=== PATIENT | female | born 1955 | race Caucasian/White ===

== ENCOUNTER → 2017-08-26 | Outpatient (CLI) | payer OTHER ==
[~2017-08-26] MED LIST: CHOLESTEROL MED; GLUCOPHAGE; GLYB5; GUAPHELA PO; METF500; NIFE10 PO; SULTRIDS PO
[2017-08-26 14:22] LABS: BASOPHILS ABSOLUTE AUTO 0.05 K/mm3 (0.00-0.23); BASOPHILS PERCENT AUTO 1 % (0-2); EOSINOPHILS ABSOLUTE AUTO 0.16 K/mm3 (0.00-0.68); EOSINOPHILS PERCENT AUTO 3 % (0-6); Hematocrit 37.6 % (33.0-51.0); IMMATURE GRAN ABSOLUTE AUTO 0.04 K/mm3 (0.00-0.10); IMMATURE GRAN PERCENT AUTO 1 % (0-1); LYMPHOCYTES PERCENT AUTO 31 % (21-46); MONOCYTES ABSOLUTE AUTO 0.41 K/mm3 (0.16-1.47); MONOCYTES PERCENT AUTO 7 % (4-13); Mean Corpuscular HGB 26.7 pg (26.0-34.0); Mean Corpuscular HGB Conc 31.9 g/dL (31.5-36.5); Mean Corpuscular Volume 84 fL (80-100); Mean Platelet Volume 11.1 fL (9.1-12.4); NEUTROPHILS ABSOLUTE AUTO 3.62 K/mm3 (1.96-9.15); NEUTROPHILS PERCENT AUTO 59 % (41-73); Platelet Count 270 K/mm3 (150-400); RDW Coefficient Variation 13.2 % (11.7-14.2); Red Blood Cell Count 4.49 M/mm3 (3.80-5.20); White Blood Cell Count 6.18 K/mm3 (4.00-11.30)
[2017-08-26 15:51] LABS: Alanine Aminotransfer (ALT/SGP 24 U/L (12-78); Albumin, Blood 3.7 g/dL (3.4-5.0); Albumin/Globulin Ratio 1.1 (0.8-1.8); Alk Phos 64 U/L (50-136); Anion Gap 9 mmol/L (6-16); Aspartate Aminotrans (AST/SGOT 23 U/L (12-37); Bilirubin, Total 0.4 mg/dL (0.1-1.0); Blood Urea Nitrogen 11 mg/dL (8-24); Bun/Creatinine Ratio 12.4 (12.0-20.0); CHOL/HDL RATIO 3.3; CO2, Blood 25 mmol/L (21-32); Calcium, Blood 8.7 mg/dL (8.5-10.1); Chloride, Blood 108 mmol/L (98-108); Cholesterol 140 mg/dL (50-200); Creatinine, Blood 0.89 mg/dL (0.40-1.00); Globulin, Blood 3.4 g/dL (2.2-4.0); Glomerular Filtration Rate >60 (60-); Glucose, Blood 96 mg/dL (70-99); HDL Cholesterol 43 mg/dL (>39); LDL/HDL RATIO 1.6; Low Density Lipoprotein Chol 69 mg/dL (0-110); Potassium, Blood 4.8 mmol/L (3.5-5.5); Sodium, Blood 142 mmol/L (136-145); Total Protein, Blood 7.1 g/dL (6.4-8.2); Triglycerides 141 mg/dL (30-160); Very Low Density Lipoprot Chol 28 mg/dL (6-32)
== END | disposition home or self-care (01) ==
LOC: LAB 13:50
PROVIDERS: Nurse Practitioner Family
DX: E11.9 Type 2 diabetes mellitus without complications (principal); E55.9 Vitamin D deficiency, unspecified; E78.5 Hyperlipidemia, unspecified
CPT/HCPCS: 80053; 80061; 82306; 85025

== ENCOUNTER 2021-09-12 06:42 | Day surgery (SDC) | payer OTHER ==
[~2021-09-12] VITALS: Ht 167.6 cm; Wt 80.2 kg
[~2021-09-12 06:42] MED LIST changes: +AMLO5; +GLIP5; +HYDCHL25; +INSULANI; +LOSA50; +LOVA40; +MELATONIN5 M1
[2021-09-12] MEDS ORDERED: INSULANI (07:11)
--- NOTE | 2021-09-12 08:00 | NUR ---
09/12/21 0800 Spencer Bowman CALL LIGHT WITHIN REACH. DR. COLIN AWARE OF PT'S BLOOD SUGAR OF 65 D5W WITH LR ORDERED. ALSO AWARE PT NOT FULLY CLEANED OUT FROM PREPP
== END 2021-09-12 09:50 | disposition home or self-care (01) ==
LOC: ORSCSDS 06:42
PROVIDERS: Student in an Organized Health Care Education/Training Program
PROC: 0DBM8ZX Excision of Descending Colon, Via Natural or Artificial Opening Endoscopic, Diagnostic (ICD-10-PCS; principal; 2021-09-12 08:00)
PROC: 0DB78ZX Excision of Stomach, Pylorus, Via Natural or Artificial Opening Endoscopic, Diagnostic (ICD-10-PCS; principal; 2021-09-12 08:00)
PROC: 0DB48ZX Excision of Esophagogastric Junction, Via Natural or Artificial Opening Endoscopic, Diagnostic (ICD-10-PCS; principal; 2021-09-12 08:00)
PROC: 0DB98ZX Excision of Duodenum, Via Natural or Artificial Opening Endoscopic, Diagnostic (ICD-10-PCS; principal; 2021-09-12 08:00)
PROC: 0DBH8ZX Excision of Cecum, Via Natural or Artificial Opening Endoscopic, Diagnostic (ICD-10-PCS; principal; 2021-09-12 08:00)
PROC: 0DBL8ZX Excision of Transverse Colon, Via Natural or Artificial Opening Endoscopic, Diagnostic (ICD-10-PCS; principal; 2021-09-12 08:00)
PROC: 0DBN8ZX Excision of Sigmoid Colon, Via Natural or Artificial Opening Endoscopic, Diagnostic (ICD-10-PCS; principal; 2021-09-12 08:00)
DX: D50.9 Iron deficiency anemia, unspecified (principal); K21.9 Gastro-esophageal reflux disease without esophagitis; K29.70 Gastritis, unspecified, without bleeding; B96.81 Helicobacter pylori [H. pylori] as the cause of diseases classified elsewhere; D12.2 Benign neoplasm of ascending colon; D12.3 Benign neoplasm of transverse colon; D12.5 Benign neoplasm of sigmoid colon; I10 Essential (primary) hypertension; E78.5 Hyperlipidemia, unspecified; E11.9 Type 2 diabetes mellitus without complications; Z79.84 Long term (current) use of oral hypoglycemic drugs; Z79.899 Other long term (current) drug therapy
CPT/HCPCS: 82947; 88305; 88342; J2405; J2704; J7120; J7121

== ENCOUNTER 2022-06-03 08:20 | Day surgery (SDC) | payer OTHER ==
[~2022-06-03] VITALS: Ht 167.6 cm; Wt 80.5 kg
[2022-06-03] MEDS ORDERED: INSULANI (08:43)
[2022-06-03] MEDS ORDERED: ASCO500 PO (08:45)
== END 2022-06-03 10:33 | disposition home or self-care (01) ==
LOC: ORSCSDS 08:20
PROVIDERS: Student in an Organized Health Care Education/Training Program
PROC: 08RJ3JZ Replacement of Right Lens with Synthetic Substitute, Percutaneous Approach (ICD-10-PCS; principal; 2022-06-03 09:45)
DX: H25.11 Age-related nuclear cataract, right eye (principal); E11.42 Type 2 diabetes mellitus with diabetic polyneuropathy; K21.9 Gastro-esophageal reflux disease without esophagitis; E78.00 Pure hypercholesterolemia, unspecified; I10 Essential (primary) hypertension; Z79.84 Long term (current) use of oral hypoglycemic drugs; Z79.899 Other long term (current) drug therapy
CPT/HCPCS: 82947; J2001; J2250; J3010; J7040; V2632

== ENCOUNTER 2022-06-17 08:30 | Day surgery (SDC) | payer OTHER ==
[~2022-06-17] VITALS: Ht 167.6 cm; Wt 81.1 kg
[~2022-06-17 08:30] MED LIST changes: +ASCO500 PO
--- NOTE | 2022-06-17 08:52 | NUR ---
06/17/22 0852 Spencer Bowman CALL LIGHT WITHIN REACH. TETRACAINE IN AT 0846 IN THE LEFT EYE AND PLEDGETT AT 0848
== END 2022-06-17 10:33 | disposition home or self-care (01) ==
LOC: ORSCSDS 08:30
PROVIDERS: Student in an Organized Health Care Education/Training Program
PROC: 08RK3JZ Replacement of Left Lens with Synthetic Substitute, Percutaneous Approach (ICD-10-PCS; principal; 2022-06-17 09:45)
DX: H25.12 Age-related nuclear cataract, left eye (principal); Z96.1 Presence of intraocular lens; I10 Essential (primary) hypertension; E11.9 Type 2 diabetes mellitus without complications; Z86.73 Personal history of transient ischemic attack (TIA), and cerebral infarction without residual deficits; Z79.899 Other long term (current) drug therapy; Z79.4 Long term (current) use of insulin; Z79.84 Long term (current) use of oral hypoglycemic drugs
CPT/HCPCS: 82947; J2001; J2250; J3010; J7040; V2632

== ENCOUNTER 2023-12-10 15:44 | Emergency (ER) | payer OTHER ==
[~2023-12-10] VITALS: Ht 167.6 cm; Wt 78.5 kg
[2023-12-10] MEDS ORDERED: Norco 5-325 Ta1 EACH PO (17:29)
[2023-12-10 17:45] VITALS: BP 123/76
== END 2023-12-10 18:00 | disposition home or self-care (01) ==
LOC: ER 15:44
DX: S82.002A Unspecified fracture of left patella, initial encounter for closed fracture (principal); E11.9 Type 2 diabetes mellitus without complications; W01.0XXA Fall on same level from slipping, tripping and stumbling without subsequent striking against object, initial encounter; Z79.84 Long term (current) use of oral hypoglycemic drugs; Z79.4 Long term (current) use of insulin; Z79.899 Other long term (current) drug therapy
CPT/HCPCS: 73562-LT; 99283-25

== ENCOUNTER 2023-12-15 11:54 | Day surgery (SDC) | payer OTHER ==
[~2023-12-15] VITALS: Ht 166 cm; Wt 76.3 kg
[2023-12-15] VITALS (11 sets, daily range): BP systolic 127–162; BP diastolic 66–89
[~2023-12-15 11:54] MED LIST changes: +CeFAZolin Sodium 2,000 MG in NS 100 ML IV SCH; -HYDCHL25; +HYDCHL25 PO; -LOVA40; +LOVA40 PO; +Lactated Ringer's 1,000 ML IV SCH; +Norco 5-325 Ta1 EACH PO
[2023-12-15] MEDS ORDERED: AMLODIPINE BESYL5 MG PO (12:11)
[2023-12-15] MEDS ORDERED: HYDROCODONE-AC1 EA19 PO (12:13)
[2023-12-15] MEDS ORDERED: JARDIANCE25 MG PO (12:14)
[2023-12-15] MEDS ORDERED: LOSA50 PO (12:15)
[2023-12-15] MEDS ORDERED: METFORMIN HCL500 M3 PO (12:16)
[2023-12-15] MEDS ORDERED: OMEP20ER PO (12:17)
[2023-12-15] MEDS ORDERED: INSULIN GL100 UNIT/1 SC (12:18)
[2023-12-15] MEDS ORDERED: propofoL 20 ML IV ONE (13:13)
[2023-12-15] MEDS ORDERED: FentaNYL Citrate 50 MCG/ML 2 ML Injection ONE (13:13)
[2023-12-15] MEDS ORDERED: Rocuronium Bromide 10 MG/ML 5ML Injection IV ONE (13:14)
--- NOTE | 2023-12-15 13:20 | NUR ---
1308- PATIENT DENIES S/S OF HYPOGLYCEMIA AND IN NO APPARENT DISTRESS. ANSWERS QUESTIONS APPROPRIATELY. NONDIAPHORETIC. DR REED AT BEDSIDE AND DISCUSSED WITH PATIENT SIGNS AND SYMPTOMS OF HYPOGLYCEMIA. DR REED TOLD THIS RN NOT TO TREAT CHEM BG OF 48 (TAKEN AT 1307) UNLESS PATIENT DEVELOPS S/S OF HYPOGLYCEMIA. OR LINE STAKER RN, BARTOLOME, NOTIFIED OF CHEM BG RESULT.
--- NOTE | 2023-12-15 13:24 | NUR ---
PATIENT LEFT LOWER DENTURES AT HOME. WEARING UPPER DENTURES.
[2023-12-15] MEDS ORDERED: Bupivacaine 0.5% HCl 5 MG/ML 30MLVIAL ONE (13:27)
--- NOTE | 2023-12-15 13:33 | NUR ---
2460 REPORT RECEIVED FROM TOSIN NORIEGA. THIS RN TO ASSUME CARE OF PT. PT HAS NO COMPLAINTS. CALL LIGHT WITHIN REACH.
[2023-12-15] MEDS ORDERED: Dexamethasone Sod Phos 10 MG/ML 1ML VIAL ONE (14:43)
[2023-12-15] MEDS ORDERED: Ondansetron HCl 2 MG / ML 2ML Vial ONE (14:43)
[2023-12-15] MEDS ORDERED: D5W-1/2NS 500 ML IV ONE (14:50)
--- NOTE | 2023-12-15 14:54 | NUR ---
12/15/23 1454 Zulema Kenney BG CHECKED BY THIS RN AFTER INCISION, RESULT OF 34. DR. REED NOTIFIED AND D5 1/5 NS ORDERED FROM PHARMACY. D5 1/2 NS STARTED AT [address] REED.
[2023-12-15] MEDS ORDERED: Sugammadex Sodium 200 MG/2ML SDV (100 MG/ML) ONE (15:12)
[2023-12-15] MEDS ORDERED: HYDROmorphone HCl/Pf 1MG SYR ONE (15:51)
[2023-12-15] MEDS ORDERED: OxyCODONE 5 mg/Acetamin 325 mg TABLET PO PRN (16:05)
--- NOTE | 2023-12-15 17:16 | NUR ---
Discharge instructions reviewed with patient. Patient verbalizes understanding. Copy given to patient to take home. Prescription given to pt's family. Splint in place. Cane and old brace given back to pt. Cap-refill <3 sec. Patient States Post-Procedure ride home has been arranged. Discharged via wheelchair to private car for ride home.
== END 2023-12-15 17:05 | disposition home or self-care (01) ==
LOC: ORSCMMR 11:54
PROVIDERS: Orthopaedic Surgery
PROC: 0QSF04Z Reposition Left Patella with Internal Fixation Device, Open Approach (ICD-10-PCS; principal; 2023-12-15 11:15)
DX: S82.042A Displaced comminuted fracture of left patella, initial encounter for closed fracture (principal); W18.30XA Fall on same level, unspecified, initial encounter; I10 Essential (primary) hypertension; E78.5 Hyperlipidemia, unspecified; Z79.899 Other long term (current) drug therapy; E11.9 Type 2 diabetes mellitus without complications; Z79.4 Long term (current) use of insulin; Z79.84 Long term (current) use of oral hypoglycemic drugs
CPT/HCPCS: 73560-LT; 82947; A9270; J0690; J1100; J1170; J2405; J2704; J3010; J7042; J7120

== ENCOUNTER 2023-12-20 19:02 | Emergency (ER) | payer OTHER ==
[~2023-12-20] VITALS: Ht 167.6 cm; Wt 78.5 kg
[~2023-12-20 19:02] MED LIST changes: +AMLODIPINE BESYL5 MG PO; -CeFAZolin Sodium 2,000 MG in NS 100 ML IV SCH; +HYDROCODONE-AC1 EA19 PO; +INSULIN GL100 UNIT/1 SC; +JARDIANCE25 MG PO; +LOSA50 PO; -Lactated Ringer's 1,000 ML IV SCH; +METFORMIN HCL500 M3 PO; +OMEP20ER PO
[2023-12-20 19:15] VITALS: BP 135/69
== END 2023-12-20 20:48 | disposition home or self-care (01) ==
LOC: ER 19:02
DX: E11.649 Type 2 diabetes mellitus with hypoglycemia without coma (principal); I10 Essential (primary) hypertension; E78.5 Hyperlipidemia, unspecified; Z79.84 Long term (current) use of oral hypoglycemic drugs; Z79.4 Long term (current) use of insulin; Z79.899 Other long term (current) drug therapy
CPT/HCPCS: 82947; 99285